=== PATIENT | female | born 1950 | race Caucasian/White ===

== ENCOUNTER 2016-12-25 13:45 | Emergency (ER) | payer OTHER ==
--- NOTE | ~2016-12-25 | MR122 ---
[facility] A Service of [facility] & [facility] RADIOLOGY TEXT RESULTS PATIENT: ELKIN LEE LOCATION: [facility] : 46 UNIT #: [id number] AGE: [address]: Tim Garcia DO SEX: F ORDER DR: [id number] [facility] [address] [place], [place] [address] [id number] E MR#: [id number] Acc #: [id number] NAME: ELKIN LEE : 1950 SEX: F STUDY DATE/TIME: 12/25/2016 14:18 UNIT: [facility] ROOM: STUDY DESCRIPTION: MR MRA Head Wo Contrast Attending Physician: Tim Garcia D.O. Ordering Physician: Tim Garcia D.O. Primary Care Physician: April Tee M.D. MRI CENTER REPORT This report is preliminary unless electronic signature is present. EXAM Intracranial MR angiogram the HISTORY Visual disturbance, known history of an intracranial aneurysm which is not treated per patient. Patient says she saw a bright light this morning at about 11:00 a.m. at home and has a headache and also has a history of hypertension. Patient has a history of nonspecified cancer. COMMENT MR angiography performed [place] of Ravi vasculature without contrast. COMPARISON No comparison. 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 It most likely arises from the proximal supraclinoid ICA and I suspect it is actually intradural in location. It is saccular and measures about 3 mm in diameter. If this patient is not already been followed by neurosurgery, this is recommended and comparison to outside imaging is recommended to see if this lesion is enlarging this time. If not already done elsewhere conventional angiogram is recommended to determine therapeutic options. There is no intracranial vascular cutoff. There is some mild irregularity of the intracranial vasculature. In particular, there is approximately moderate stenosis of the proximal M1 vessel on the right which is probably due to intracranial atherosclerotic disease in light of age group and history of hypertension. The patients origin to the left posterior cerebral artery distribution via large left posterior communicator and the left P1 vessel is hypoplastic or diseased. There is a tiny anterior STS. [facility] A Service of [facility] & [facility] RADIOLOGY TEXT RESULTS PATIENT: ELKIN LEE LOCATION: [facility] : 46 UNIT #: [id number] AGE: [address]: Tim Garcia DO SEX: F ORDER DR: communicating artery present. IMPRESSION 1. There is an approximately 3 mm saccular aneurysm which probably arises from the supraclinoid left internal carotid artery proximally. In this location it should be intradural location and should be further evaluated with conventional angiogram if not already performed elsewhere. I do not have access to any of the patient's prior imaging of this aneurysm. Please correlate with history and if the outside films are provided for review, I will addend this report with a comparison. If not already followed by neurosurgery I would suggest neurosurgery consultation. 2. There is no intracranial vascular cutoff. 3. There is evidence for intracranial atherosclerotic disease most apparent at the proximal right M1 vessel with about moderate short segment stenosis. Vascular variations discussed above. Dictated by... Alexandra Caceres M.D. THIS IS AN ELECTRONICALLY VERIFIED REPORT Alexandra Caceres M.D. at 12/25/2016 5:55 PM SAC/to TD: 12/25/2016 16:23 JOB #: [id number] MRI CENTER REPORT Page 1 of 1 COPY
--- NOTE | ~2016-12-25 | MR18 ---
[facility] A Service of [facility] & [facility] RADIOLOGY TEXT RESULTS PATIENT: ELKIN LEE LOCATION: [facility] : 46 UNIT #: [id number] AGE: [address]: Tim Garcia DO SEX: F ORDER DR: [id number] [facility] [address] [place], [place] [address] [id number] E MR#: [id number] Acc #: [id number] NAME: ELKIN LEE : 1950 SEX: F STUDY DATE/TIME: 12/25/2016 14:18 UNIT: [facility] ROOM: STUDY DESCRIPTION: MR Brain Wo Contrast Attending Physician: Tim Garcia D.O. Ordering Physician: Tim Garcia D.O. Primary Care Physician: April Tee M.D. MRI CENTER REPORT This report is preliminary unless electronic signature is present. EXAM MRI brain without HISTORY Pain and vision changes. Patient has a history of a known left-sided aneurysm, untreated per patient. History of hypertension. Saw a bright light this morning around 11:00 a.m. at home. No other symptoms. History of cancer type not specified by the patient. COMMENT MRI of the brain was performed without contrast using routine 1.5T imaging technique. There is no prior imaging of the brain at this institution and direct comparison to outside study which shows an aneurysm is strongly recommended. Site of prior imaging is not indicated by the patient. Noncontrast study is not sensitive for intracranial metastatic disease. There is no evidence for a recent ischemic insult on the diffusion series. There is no MRI evidence for intracranial hemorrhage. No extraaxial fluid collection. No intracranial mass effect. There is fluid or inflammatory change in the bilateral mastoid air cells. The major intracranial flow voids are maintained. This is not a study which would be sensitive for intracranial aneurysm. The paranasal sinuses are clear. There is kufm-uv-aadfljua white matter signal abnormality with too numerous to count small foci of white matter signal intensity abnormality seen within the subcortical deep and periventricular white matter supratentorial brain most prominent in the subcortical white matter. Largest about 6.0-7.0 mm in dimension. In age group this is likely due to small vessel disease. There is mild generalized atrophy and prominence of perivascular spaces otherwise. IMPRESSION [facility]. [facility] A Service of [facility] RADIOLOGY TEXT RESULTS PATIENT: ELKIN LEE LOCATION: [facility] : 46 UNIT #: [id number] AGE: [address]: Tim Garcia DO SEX: F ORDER DR: 1. No evidence for recent ischemic insult on the diffusion series. 2. White matter disease is nonspecific but likely due to small vessel disease in age group. 3. Mild generalized atrophy. 4. Fluid or inflammatory change in the bilateral mastoid air cells. 5. Please refer to the separate MR angiographic studies. If there is an outside examination which documents the aneurysm which the patient describes in the history, direct comparison to those films recommended. I do not have access to any outside images or reports of the brain. Dictated by... Alexandra Caceres M.D. THIS IS AN ELECTRONICALLY VERIFIED REPORT Alexandra Caceres M.D. at 12/25/2016 5:55 PM Win TD: 12/25/2016 16:11 JOB #: [id number] MRI CENTER REPORT Page 1 of 1 COPY
--- NOTE | ~2016-12-25 | MR133 ---
[facility] A Service of [facility] RADIOLOGY TEXT RESULTS PATIENT: ELKIN LEE LOCATION: [facility] : 46 UNIT #: [id number] AGE: [address]: Tim Garcia DO SEX: F ORDER DR: [id number] [facility] [address] [place], [place] [address] [id number] E MR#: [id number] Acc #: [id number] NAME: ELKIN LEE : 1950 SEX: F STUDY DATE/TIME: 12/25/2016 14:18 UNIT: [facility] ROOM: STUDY DESCRIPTION: MR MRA Neck WWo Contrast Attending Physician: Tim Garcia D.O. Ordering Physician: Tim Garcia D.O. Primary Care Physician: April Tee M.D. MRI CENTER REPORT This report is preliminary unless electronic signature is present. EXAM MR angiogram of the neck with and without 12/25/2016 HISTORY Known history of intracranial aneurysm. Complains of headache today with right eye visual disturbance with light flashing 11:00 a.m. COMMENT MR angiography performed neck vasculature prior to and during the intravenous administration of 12 mL of MultiHance. COMPARISON STUDIES No prior study of the neck vessels. FINDINGS By NASCET criteria 0% stenosis of the right carotid bifurcation. By NASCET criteria 0% stenosis of the left carotid bifurcation. The internal carotid artery is tortuous on the right. Both vertebral arteries are patent and fairly codominant. I believe there is a bovine origin to the left common carotid artery. Some tortuosity of the proximal vertebral artery is noted but probably not hemodynamically significant stenosis. IMPRESSION 1. By NASCET criteria, no hemodynamically significant stenosis at either carotid bifurcation. I would estimate 0% stenosis on the basis of this study. 2. Both vertebral arteries are patent and fairly codominant. STAT * RESULT Dictated by... [facility] A Service of [facility] RADIOLOGY TEXT RESULTS PATIENT: ELKIN LEE LOCATION: [facility] : 46 UNIT #: [id number] AGE: [address]: Tim Garcia DO SEX: F ORDER DR: Alexandra Caceres M.D. THIS IS AN ELECTRONICALLY VERIFIED REPORT Alexandra Caceres M.D. at 12/25/2016 5:54 PM Aysha TD: 12/25/2016 15:43 JOB #: [id number] MRI CENTER REPORT Page 1 of 1 COPY
[2016-12-25 13:01] LABS: BASOPHIL# 0.1 X10e3 (0-0.3); BASOPHIL% 1.2 % (0-2.5); DIFF IND NO; EOSINOPHIL# 0.2 X10e3 (0-0.7); EOSINOPHIL% 1.5 % (0.0-7.0); HEMATOCRIT 38.5 % (35.0-45.0); LYMPHOCYTE# 2.3 X10e3 (1.0-3.5); LYMPHOCYTE% 21.5 % (17.0-45.0); MEAN CELL VOLUME 82.3 FL (83-96); MEAN CORPUSCULAR HEMOGLOBIN 27.8 PG (28-34); MEAN CORPUSCULAR HGB CONC 33.7 g/dL (30-36); MEAN PLATELET VOLUME 8.1 FL (6.5-11.5); MONOCYTE# 0.5 X10e3 (0-1.0); MONOCYTE% 4.8 % (3.0-12.0); NEUTROPHIL# 7.5 X10e3 (1.5-7.1); PLATELET COUNT 266 X10e3 (140-420); RED BLOOD COUNT 4.68 X10e (3.90-5.30); RED CELL DISTRIBUTION WIDTH 13.3 % (11.0-15.5); WHITE BLOOD COUNT 10.6 X10e3 (4.0-10.5)
[2016-12-25 13:16] LABS: INR 0.9; PARTIAL THROMBOPLASTIN TIME 23.6 SECONDS (23.5-31.3); PROTHROMBIN TIME (PATIENT) 9.9 SECONDS (9.6-11.5)
[2016-12-25 13:24] LABS: ALBUMIN SERUM 4.2 g/dL (3.5-5.0); ALKALINE PHOSPHATASE 80 U/L (32-92); ALT (SGPT) 12 U/L (10-40); AST (SGOT) 18 U/L (10-42); BILIRUBIN,TOTAL 0.6 mg/dL (0.2-2.0); BLOOD UREA NITROGEN 18 mg/dL (9-23); CALCIUM SERUM 9.2 mg/dL (8.4-10.2); CARBON DIOXIDE 23 mmol/L (22-31); CHLORIDE 102 mmol/L (100-111); GLOM FILT RATE Estimated 57.9 mL/min (>60); GLUCOSE FASTING 108 mg/dL (70-110); POTASSIUM 3.4 mmol/L (3.5-5.1); PROTEIN TOTAL SERUM 7.8 g/dL (6.0-8.3); SODIUM 137 mmol/L (135-145)
[2016-12-25 13:26] LABS: BILIRUBIN, DIRECT <0.1 mg/dL (0.0-0.2); BILIRUBIN,INDIRECT 0.5 mg/dL (0.0-0.9)
[~2016-12-25 13:45] MED LIST: AMOXICILLIN PO; CO Q 10; DEXFOL PO; FISH OIL 1,0001 CAP PO; FLOMAX0.4 MG PO; GARLIQUE; TYLOX 5/500 CAP1 CAP PO; VIT E PO; VITAMIN C PO; VITAMIN D 4001 UDTAB PO; ZESTORETIC 10/11 TAB PO
[2016-12-25 16:05] LABS: URINE SOURCE CLEAN CATCH
[2016-12-25 16:17] LABS: URINE APPEARANCE CLEAR; URINE BILIRUBIN NEG (NEG); URINE BLOOD TRACE (NEG); URINE COLOR YELLOW; URINE GLUCOSE NEG (NEG); URINE KETONE NEG (NEG); URINE LEUKOCYTE ESTERASE NEG (NEG); URINE NITRATE NEG (NEG); URINE PH 6.5 (5-8); URINE PROTEIN NEG (NEG); URINE UROBILINOGEN 0.2 MG/DL (NEG)
[2016-12-25 16:21] LABS: URINE BACTERIA AUWI NEG (NEGATIVE); URINE SQUAMOUS EPITHELIAL CELL NONE SEEN /[HPF]; UWBCS1 AUWI 0-2 (0-5)
[2016-12-25 16:35] LABS: CULTURE INDICATED? NO
== END 2016-12-25 19:15 | disposition home or self-care (01) ==
LOC: CED 13:45
PROVIDERS: Emergency Medicine
DX: H53.9 Unspecified visual disturbance (principal); I10 Essential (primary) hypertension; Z90.89 Acquired absence of other organs; Z88.2 Allergy status to sulfonamides; Z88.8 Allergy status to other drugs, medicaments and biological substances; Z79.899 Other long term (current) drug therapy
CPT/HCPCS: 36415; 70544; 70549; 70551; 80048; 80076; 81003; 85025; 85610; 85652; 85730; 99284; A9577; J1100

== ENCOUNTER → 2017-02-02 | Outpatient (CLI) | payer OTHER ==
--- NOTE | ~2017-02-02 | US77 ---
[facility] A Service of [facility] & [facility] RADIOLOGY TEXT RESULTS PATIENT: ELKIN LEE LOCATION: [facility] : 46 UNIT #: [id number] AGE: [address]: April Tee MD SEX: F ORDER DR: [id number] [facility] [address] [place], [place] [address] [id number] O MR#: [id number] Acc #: [id number] NAME: ELKIN LEE : 1950 SEX: F STUDY DATE/TIME: 02/02/2017 14:19 UNIT: [facility] ROOM: STUDY DESCRIPTION: US Kidney Bilateral Complete Attending Physician: April Tee M.D. Referring Physician: April Tee M.D. Ordering Physician: April Tee M.D. Primary Care Physician: April Tee M.D. MEDICAL IMAGING REPORT This report is preliminary unless electronic signature is present EXAM Bilateral renal ultrasound 02/02/2017 HISTORY Follow up indeterminate, probably benign, complicated cyst lower pole left kidney noted on renal ultrasound 08/02/2015. Follow-up ultrasound was recommended in 6-12 months to assess for stability. FINDINGS Right kidney measures 9.4 cm, while the left kidney measures 8.6 cm in longitudinal dimensions. There is no evidence of hydronephrosis or nephrolithiasis. The 6 mm hypoechoic lesion on the lower pole of the left kidney is not significantly changed compared with 08/02/2015. There is normal renal cortical echogenicity. Images of the bladder are normal. IMPRESSION No change in the 6 mm hypoechoic lesion in the left kidney compared with 08/02/2015. Dictated by... Wes Naik M.D. THIS IS AN ELECTRONICALLY VERIFIED REPORT Wes Naik M.D. at 02/03/2017 2:05 PM KRT/pcl TD: 02/02/2017 20:20 JOB #: [id number] MEDICAL IMAGING REPORT Page 1 of 1 COPY
== END | disposition home or self-care (01) ==
LOC: CGUS 13:53
DX: N28.1 Cyst of kidney, acquired (principal); N28.89 Other specified disorders of kidney and ureter
CPT/HCPCS: 76770